=== PATIENT | male | born 1975 | race Caucasian/White ===

== ENCOUNTER 2017-01-06 15:08 | Inpatient (IN) | payer MEDICAID, OTHER ==
[~2017-01-06] VITALS: Ht 165.1 cm; Wt 72.6 kg
--- NOTE | 2017-01-06 15:31 | NUR ---
DR TIJERINA AT THE BEDSIDE FOR EVAL AND EXAM.
[2017-01-06] MEDS ORDERED: PANTOPRAZOLE SODIUM 40 MG VIAL IV ONE (16:00)
[2017-01-06] MEDS ORDERED: DEXAMETHASONE SOD PHOSPHATE 4 MG INJ IV ONE (16:00)
[2017-01-06] MEDS ORDERED: MORPHINE SULFATE 2 MG/1 ML DISP.SYRIN IV ONE (16:00)
[2017-01-06] MEDS ORDERED: ONDANSETRON 4 MG/2 ML VIAL IV ONE (16:00)
[2017-01-06] MEDS ORDERED: DEXAMETHASONE SOD PHOSPHATE 10 MG INJ ONE (16:05)
[2017-01-06] MEDS ORDERED: PANTOPRAZOLE SODIUM 40 MG VIAL ONE (16:05)
[2017-01-06] MEDS ORDERED: ONDANSETRON 4 MG/2 ML VIAL ONE (16:05)
[2017-01-06] MEDS ORDERED: MORPHINE SULFATE 4 MG/1 ML DISP.SYRIN ONE (16:05)
[2017-01-06 16:27] LABS: CALCIUM 8.6 mg/dL (8.5-10.1); CARBON DIOXIDE 29 mmol/L (21-32); CHLORIDE 106 mmol/L (98-107); CREATININE 0.9 mg/dL (0.6-1.3); GFR 93 mL/min (>60); GLUCOSE 106 mg/dL (74-106); POTASSIUM 3.7 mmol/L (3.5-5.1); SODIUM SERUM 144 mmol/L (136-145); UREA NITROGEN, BLOOD 15 mg/dL (7-18)
[2017-01-06 16:28] LABS: BASOPHILS % (AUTO) 0.3 % (0.0-2.0); EOSINOPHILS # (AUTO) 0.1 K/uL (0.0-0.7); EOSINOPHILS % (AUTO) 1.2 % (0.0-7.0); HEMATOCRIT 40.6 % (40-50); HEMOGLOBIN 14.4 G/DL (14.0-18.0); LYMPHOCYTES # (AUTO) 1.4 K/uL (20.0-40.0); MEAN CORPUSCULAR HEMOGLOBIN 31.3 UUG (27.0-31.0); MEAN CORPUSCULAR HGB CONC 35 g/dL (32.0-37.0); MEAN CORPUSCULAR VOLUME 88.2 FL (82.0-92.0); MONOCYTES # (AUTO) 0.5 K/uL (2.0-10.0); MONOCYTES % (AUTO) 9.2 % (0.0-11.0); NEUTROPHILS # (AUTO) 3.7 K/uL (1.8-8.9); NEUTROPHILS % (AUTO) 64.3 % (38.5-71.5); PLATELET COUNT (AUTO) 166 K/UL (150-450); RED CELL DISTRIBUTION WIDTH 13.7 % (11.5-14.5); WHITE BLOOD COUNT (AUTO) 5.7 K/UL (4.0-11.2)
--- NOTE | 2017-01-06 16:31 | NUR ---
PT BACK FROM CT, STATES BACK PAIN IS 2/10.
[2017-01-06 16:32] LABS: ALANINE AMINOTRANSFERASE 51 U/L (16-63); ALBUMIN 3.4 g/dL (3.4-5.0); ALKALINE PHOSPHATASE 62 U/L (50-136); ASPARTATE AMINOTRANSFERASE 44 U/L (15-37); BILIRUBIN,DIRECT < 0.1 mg/dL (0.0-0.2); BILIRUBIN,TOTAL 0.2 mg/dL (0.2-1.0)
[2017-01-06] MEDS ORDERED: HYDROMORPHONE 1 MG/1 ML DISP.SYRIN IV ONE (17:00)
[2017-01-06] MEDS ORDERED: HYDROMORPHONE 1 MG/1 ML DISP.SYRIN ONE (17:08)
--- NOTE | 2017-01-06 17:39 | NUR ---
PT NOT CANDIDATE FOR MRSA. BELONGING LIST COMPLETED.
--- NOTE | 2017-01-06 18:20 | NUR ---
received from ER awake alert/oriented x 4 per w/c, oriented to bed controls and call light button, initial assessment done, call light within reach
[2017-01-06 18:30] VITALS: BP 130/91
--- NOTE | 2017-01-06 19:00 | NUR ---
endorsed to next shift
--- NOTE | 2017-01-06 19:30 | NUR ---
RESTING COMFORTABLY IN BED. ABLE TO MAKE NEEDS KNOWN. ABLE TO PROVIDE HISTORY. BODY ASSESSMENT DONE. NO ACUTE DISTRESS NOTED. STILL WITH COMPLAINTS OF BACK PAIN. ABLE TO AMBULATE WITH ASSISTIVE DEVICE AND ASSISTANCE BUT UNSTEADY. FALL RISK. CALL LIGHT WITHIN REACH. WILL CONTINUE TO MONITOR
[2017-01-06 20:15] VITALS: BP 123/85
[2017-01-06] MEDS ORDERED: HYDROCODONE/APAP 5-325MG TABLET PO PRN ×2 (20:30)
[2017-01-06] MEDS ORDERED: HYDROMORPHONE 1 MG/1 ML DISP.SYRIN IV PRN (20:30)
[2017-01-06] MEDS ORDERED: ZOLPIDEM 5 MG TABLET PO PRN (20:30)
[2017-01-06] MEDS ORDERED: ONDANSETRON 4 MG/2 ML VIAL IV PRN (20:30)
[2017-01-06] MEDS ORDERED: ACETAMINOPHEN 325 MG TABLET PO PRN (20:30)
[2017-01-06] MEDS: GABAPENTIN 300 MG CAPSULE PO SCH (21:45)
[2017-01-07 05:12] VITALS: BP 128/86
--- NOTE | 2017-01-07 06:28 | NUR ---
STATED WAS ABLE TO SLEEP WITH THE AID OF SLEEPING MEDICATION. STILL WITH COMPLAINTS OF PAIN, RELIEVED WITH PAIN MEDICATION ORDERED. NEEDS ATTENDED. NO ACUTE DISTRESS NOTED. SAFETY MAINTAINED. CALL LIGHT WITHIN REACH
[2017-01-07 07:24] LABS: *BILIRUBIN,URIN NEGATIVE (NEGATIVE); *BLOOD, URINE NEGATIVE (NEGATIVE); *CLARITY,URINE CLEAR (CLEAR); *COLOR,URINE YELLOW (YELLOW); *KETONES,URINE NEGATIVE (NEGATIVE); *PROTEIN,URINE NEGATIVE (NEGATIVE); *UROBILINOGEN,URINE 0.2 E.U./dl (NORMAL); LEUKOCYTE ESTERASE ,URINE NEGATIVE (NEGATIVE); NITRITE, URINE NEGATIVE (NEGATIVE); PH,URINE 7.5 (5.0-8.0)
[2017-01-07 07:30] LABS: UGLUCOSE 2+ (NEGATIVE)
[2017-01-07 07:35] LABS: BACTERIA,URINE NONE SEEN /HPF (NONE SEEN); RBC,URINE 0-3 /HPF (0-3); SQUAMOUS EPITHELIAL CELL,UR NONE SEEN /HPF (NONE SEEN); WBC,URINE NONE SEEN /HPF (0-3)
[2017-01-07 07:36] LABS: ALBUMIN 3.5 g/dL (3.4-5.0); BILIRUBIN,TOTAL 0.4 mg/dL (0.2-1.0); CALCIUM 8.5 mg/dL (8.5-10.1); CREATININE 0.9 mg/dL (0.6-1.3); POTASSIUM 3.7 mmol/L (3.5-5.1); TOTAL PROTEIN, SERUM 7.5 g/dL (6.4-8.2)
[2017-01-07 07:38] LABS: BASOPHILS % (AUTO) 0.1 % (0.0-2.0); EOSINOPHILS % (AUTO) 0.1 % (0.0-7.0); HEMATOCRIT 44.3 % (40-50); HEMOGLOBIN 14.8 G/DL (14.0-18.0); LYMPHOCYTES # (AUTO) 0.7 K/UL (0.8-4.8); LYMPHOCYTES % (AUTO) 7.9 % (20.5-51.5); MEAN CORPUSCULAR HEMOGLOBIN 29.8 UUG (27.0-31.0); MEAN CORPUSCULAR HGB CONC 33 g/dL (32.0-37.0); MEAN CORPUSCULAR VOLUME 89.3 FL (82.0-92.0); MONOCYTES # (AUTO) 0.2 K/UL (0.1-1.30); NEUTROPHILS # (AUTO) 7.3 K/UL (1.8-8.9); NEUTROPHILS % (AUTO) 88.9 % (38.5-71.5); PLATELET COUNT (AUTO) 166 K/UL (150-450); RED BLOOD CELL COUNT(AUTO) 4.96 MIL/UL (4.7-6.1); RED CELL DISTRIBUTION WIDTH 13.5 % (11.5-14.5); WHITE BLOOD COUNT (AUTO) 8.2 K/UL (4.0-11.2)
--- NOTE | 2017-01-07 08:00 | NUR ---
resting in bed, no distress noted, uses walker to go to [facility] but instructed to always call for help when getting up, explained plan fo care- verbalized understanding, fall risk maintained, bed alarm on, call light within reach
--- NOTE | 2017-01-07 08:00 | NUR ---
awake alert and oriented, denies of migraine at this time, no shortness of breath noted, expalined plan of care- verbalized understanding, call light within reach Addendum: 01/07/17 at 1227 by RADHA SUN RN wrong entry -error
[2017-01-07] MEDS: GABAPENTIN 300 MG CAPSULE PO SCH ×3 (08:16→16:49)
[2017-01-07] MEDS ORDERED: NO HOME MEDS (09:20)
--- NOTE | 2017-01-07 10:00 | NUR ---
seen by Dr Sosa- to be transferred to [facility] Addendum: 01/07/17 at 1511 by RADHA SNU RN pt to be transferred to [facility]
[2017-01-07] MEDS: HYDROMORPHONE 1 MG/1 ML DISP.SYRIN IV PRN ×3 (10:30→16:49)
--- NOTE | 2017-01-07 10:30 | NUR ---
c/o of headache- medicated with Toradol 15mg IV prn as ordered, states hasn't had BM today and thinks that thhis could be causing her headache- gave prune juice, offered MOM but refused Addendum: 01/07/17 at 1227 by RADHA SUN RN wrong entry error
--- NOTE | 2017-01-07 10:30 | NUR ---
c/o low back pain- medicated with Dilaudid 0.5 mg iv as prn
--- NOTE | 2017-01-07 11:15 | NUR ---
states pain lesser, wanted to go downstairs to smoke but explained the risks involved for going down stairs- explained that safety is a priority
[2017-01-07 12:02] VITALS: BP 144/94
--- NOTE | 2017-01-07 13:52 | NUR ---
c/o pain lower back/left leg- medicated width dilaudid 0.5mg iv as ordered prn-fall risks maintained
[2017-01-07 15:32] VITALS: BP 127/92
--- NOTE | 2017-01-07 16:43 | NUR ---
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 The patient's room is 410 bed A. The nurse can call to give report to . 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 The transportation was arranged by Humberto. notified Charge nurse, Shagufta.
--- NOTE | 2017-01-07 17:30 | NUR ---
tp to go to [facility] - p/up 7pm per case mgt, called Bailey to give report- charge nurse refused to get report now - to call report to next shift
--- NOTE | 2017-01-07 18:48 | NUR ---
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
[2017-01-07 19:45] VITALS: BP 143/101
--- NOTE | 2017-01-07 19:55 | NUR ---
GIVEN REPORT TO CLIVE ALEXANDRA IN [facility]. PT IS DISCHARGED TO [facility]. LEFT VIA [facility]. ON STABLE CONDITION. AWAKE, ABLE TO MAKE NEEDS KNOWN.
== END 2017-01-07 19:55 | disposition short-term general hospital (02) | DRG 347 ==
LOC: ER 15:17 → MED 17:40
PROVIDERS: ADMIT Internal Medicine; ATTEND Internal Medicine
DX: M48.06 Spinal stenosis, lumbar region (principal); F17.210 Nicotine dependence, cigarettes, uncomplicated; G89.29 Other chronic pain; M54.32 Sciatica, left side
CPT/HCPCS: 36415; 72131; 85025; 85730; C9113; J1100; J1170; J2270; J2405; J7030

== ENCOUNTER 2017-09-22 22:17 | Emergency (ER) | payer MEDICAID ==
[~2017-09-22] VITALS: Ht 165.1 cm; Wt 77.1 kg
[~2017-09-22 22:17] MED LIST: NO HOME MEDS
[2017-09-22] MEDS ORDERED: HYDROCODONE/APAP 10-325 MG TABLET PO ONE (22:45)
[2017-09-22] MEDS ORDERED: SULFAMETH/TRIMETH 800/160 MG TABLET PO ONE (22:45)
[2017-09-22] MEDS ORDERED: HYDROCODONE/APAP 10-325 MG TABLET ONE (23:08)
[2017-09-22] MEDS ORDERED: SULFAMETH/TRIMETH 800/160 MG TABLET ONE (23:08)
--- NOTE | 2017-09-23 00:14 | NUR ---
Patient discharged to home in stable conditon. Written and verbal after care instructions given. Patient verbalizes understanding of instructions. Ambulated from ER with stable gait. All belongings with patient. Patient will be driven home by mother in private vehicle.
[2017-09-23 00:15] VITALS: BP 130/87
== END 2017-09-23 00:17 | disposition home or self-care (01) ==
LOC: ER 22:18
DX: S83.92XA Sprain of unspecified site of left knee, initial encounter (principal); F17.200 Nicotine dependence, unspecified, uncomplicated; W18.30XA Fall on same level, unspecified, initial encounter; Y92.89 Other specified places as the place of occurrence of the external cause; Y93.89 Activity, other specified; Y99.8 Other external cause status
CPT/HCPCS: 29505; 73564; 99284; 99406; A4663